=== PATIENT | female | born 1950 | race Caucasian/White ===

== ENCOUNTER → 2017-06-02 | Outpatient (CLI) | payer OTHER ==
[~2017-06-02] MED LIST: ASPIRIN PO; BLUE; CELEXA PO; CLARITIN10 MG PO; KEFLEX500 MG PO; LASIX PO; LIPITOR PO; PERCOCET5/325 PO; PRILOSEC PO; PROTONIX PO; SEROQUEL PO; TEGRETOL PO; VOLTAREN50 MG PO
--- NOTE | ~2017-06-02 | MY29 ---
[facility] A Service of [facility] RADIOLOGY TEXT RESULTS PATIENT: DONITA BIANCHI LOCATION: [facility] : 50 UNIT #: [id number] AGE: [address]: Dionte Spann MD SEX: F ORDER DR: [id number] [place], [place] [address] [id number] O MR#: [id number] Acc #: [id number] NAME: DONITA BIANCHI : 1950 SEX: F STUDY DATE/TIME: 06/02/2017 10:08 UNIT: [facility] ROOM: STUDY DESCRIPTION: [facility] SCREENING W/ CAD BILAT Attending Physician: Dionte Spann M.D. Referring Physician: Dionte Spann M.D. Ordering Physician: Dionte Spann M.D. Primary Care Physician: Dionte Spann M.D. MEDICAL IMAGING REPORT This report is preliminary unless electronic signature is present EXAM Digital screening mammogram with CAD. INDICATIONS Routine screening. PROCEDURE Bilateral CC and MLO views obtained on a digital mammography unit. FDA-approved CAD device utilized. COMPARISON 05/04/2015 FINDINGS Scattered fibroglandular density. No dominant mass or suspicious calcification. IMPRESSION Negative screening mammogram; screening interval of 1 year suggested. Patients over the age of 40 are entered into a reminder system with target due date for the next mammogram. A result letter will also be sent to the patient. BIRADS: 1 Negative Dictated by... Fercho Billy M.D. THIS IS AN ELECTRONICALLY VERIFIED REPORT Fercho Billy M.D. at 06/03/2017 7:12 AM [facility] A Service [facility] RADIOLOGY TEXT RESULTS PATIENT: DONITA BIANCHI LOCATION: [facility] : 50 UNIT #: [id number] AGE: [address]: Dionte Spann MD SEX: F ORDER DR: Sonia TD: 06/02/2017 19:08 JOB #: [id number] MEDICAL IMAGING REPORT Page 1 of 1 COPY
== END | disposition home or self-care (01) ==
LOC: CWCC 09:44
DX: Z12.31 Encounter for screening mammogram for malignant neoplasm of breast (principal)
CPT/HCPCS: G0202